=== PATIENT | female | born 1980 | race Asian ===

== ENCOUNTER 2018-06-27 17:49 | Emergency (ER) | payer MEDICAID ==
[~2018-06-27] VITALS: Ht 160 cm; Wt 72.3 kg
[2018-06-27 17:56] VITALS: BP 127/89
== END 2018-06-27 18:49 | disposition home or self-care (01) ==
LOC: ED 18:05
DX: H66.92 Otitis media, unspecified, left ear (principal)
CPT/HCPCS: 99283